=== PATIENT | female | born 1945 | race Caucasian/White ===

== ENCOUNTER → 2018-07-29 | Outpatient (CLI) | payer MEDICARE ==
[~2018-07-29] MED LIST: CARV25 PO; CYCL10 PO; HYDSUL200 PO; Norvasc2.5 MG PO
== END | disposition home or self-care (01) ==
LOC: PLD 07:30 → LAB SHORT 07:30
DX: D04.5 Carcinoma in situ of skin of trunk (principal); D22.5 Melanocytic nevi of trunk
CPT/HCPCS: 88305

== ENCOUNTER → 2021-03-12 | Outpatient (CLI) | payer MEDICARE | LOC: LAB 12:07 → LAB SHORT 12:07 | DX: D48.5 Neoplasm of uncertain behavior of skin (principal); D22.61 Melanocytic nevi of right upper limb, including shoulder; Z88.8 Allergy status to other drugs, medicaments and biological substances; Z88.2 Allergy status to sulfonamides; Z88.6 Allergy status to analgesic agent | CPT/HCPCS: 88305 ==

== ENCOUNTER → 2021-05-14 | Outpatient (CLI) | payer MEDICARE | END | disposition home or self-care (01) | LOC: LAB SHORT 14:49 | DX: L57.8 Other skin changes due to chronic exposure to nonionizing radiation (principal) | CPT/HCPCS: 88305 ==

== ENCOUNTER → 2021-08-29 | Outpatient (CLI) | payer MEDICARE | END | disposition home or self-care (01) | LOC: LAB SHORT 12:24 → PLD 12:24 | DX: L81.4 Other melanin hyperpigmentation (principal); F42.4 Excoriation (skin-picking) disorder | CPT/HCPCS: 88305 ==

== ENCOUNTER 2022-12-11 07:26 | Day surgery (SDC) | payer MEDICARE ==
[~2022-12-11] VITALS: Ht 160 cm; Wt 56.9 kg
[2022-12-11] MEDS ORDERED: NEBIVOLOL HCL10 MG PO (07:48)
[2022-12-11] MEDS ORDERED: METHOTREXATE2.510 PO (07:55)
--- NOTE | 2022-12-11 09:09 | NUR ---
12/11/22 0909 Char Gresham DELAY IN START OF CASE JESSICA WINCHESTER ISN'T WORKING FOR MD HINSON AND HELP DESK IS WORKING ON THE COMPUTER SO HE CAN DICTATE HIS H&P PRIOR TO STARTING THE CASE.
[2022-12-11 09:59] VITALS: BP 118/73
== END 2022-12-11 10:14 | disposition home or self-care (01) ==
LOC: ORSCSDS 07:26
PROVIDERS: Specialist
PROC: 0DBH8ZX Excision of Cecum, Via Natural or Artificial Opening Endoscopic, Diagnostic (ICD-10-PCS; principal; 2022-12-11 08:45)
PROC: 0DBK8ZX Excision of Ascending Colon, Via Natural or Artificial Opening Endoscopic, Diagnostic (ICD-10-PCS; principal; 2022-12-11 08:45)
DX: R10.30 Lower abdominal pain, unspecified (principal); D12.0 Benign neoplasm of cecum; D12.2 Benign neoplasm of ascending colon; K64.8 Other hemorrhoids; I10 Essential (primary) hypertension; J45.909 Unspecified asthma, uncomplicated; Z79.899 Other long term (current) drug therapy
CPT/HCPCS: 88305; J2704; J7120

== ENCOUNTER → 2023-01-16 | Outpatient (CLI) | payer MEDICARE ==
[~2023-01-16] MED LIST changes: +METHOTREXATE2.510 PO; +NEBIVOLOL HCL10 MG PO
== END ==
LOC: PLD 11:46 → LAB SHORT 11:46
DX: D48.5 Neoplasm of uncertain behavior of skin (principal)
CPT/HCPCS: 88305

== ENCOUNTER → 2023-05-19 | Outpatient (CLI) | payer MEDICARE | LOC: LAB SHORT 09:07 → LAB 09:07 | DX: D48.5 Neoplasm of uncertain behavior of skin (principal) | CPT/HCPCS: 88305 ==